=== PATIENT | female | born 1990 | race Caucasian/White ===

== ENCOUNTER 2020-01-14 13:20 | Inpatient (IN) ==
[2020-01-14] MEDS ORDERED: TUBERSOL ID ONE (15:34)
[2020-01-14] MEDS ORDERED: NICOTINE GUM BUCCAL PRN (15:34)
[2020-01-14] MEDS ORDERED: ZOFRAN IM PRN (15:34)
[2020-01-14] MEDS ORDERED: PHENOBARBITAL IV PRN (15:34)
[2020-01-14] MEDS ORDERED: DULCOLAX PR PRN (15:34)
[2020-01-14] MEDS ORDERED: NICODERM PATCH TD PRN (15:34)
[2020-01-14] MEDS ORDERED: TYLENOL PO PRN (15:34)
[2020-01-14] MEDS ORDERED: IMODIUM PO PRN ×2 (15:34)
[2020-01-14] MEDS ORDERED: ZOFRAN IV PRN (15:34)
[2020-01-14] MEDS ORDERED: D5W 1,000 ML IV PRN (15:34)
[2020-01-14] MEDS ORDERED: DESYREL PO PRN (15:34)
[2020-01-14] MEDS ORDERED: SENOKOT PO PRN (15:34)
[2020-01-14] MEDS ORDERED: MAALOX PLUS LIQUID PO PRN (15:34)
[2020-01-14 16:08] LABS: HEMATOCRIT 32.2 % (37.0-47.0); HEMOGLOBIN 10.4 g/dL (12.0-16.0); MCH 27.7 PG (27-31); MCHC 32.3 g/dL (33-37); MCV 85.6 FL (81-99); MPV 9.7 FL (7.4-10.4); RBC 3.76 XMIL (4.2-5.4); RDW 12.3 % (11.5-14.5); WBC 6.73 X1000 (4.8-10.8)
[2020-01-14 16:23] LABS: INR 0.94
[2020-01-14 16:24] LABS: AGAP 11; ALBUMIN 3.8 g/dL (3.5-5.0); ALKALINE PHOSPHATASE 64 U/L (32-104); AMYLASE 54 U/L (20-200); BUN 8 mg/dL (8-22); CHLORIDE 104 mmol/L (98-107); COSMO 276; CREATININE 0.6 mg/dL (0.5-0.9); ESTIMATED GFR > 60; GLUCOSE 70 mg/dL (70-104); GOT 13 U/L (10-30); GPT 12 U/L (10-36); LIPASE 17 U/L (13-60); SODIUM 140 mmol/L (136-145); TCO2 25 mmol/L (25-35); TOTAL PROTEIN 6.4 g/dL (6.3-8.3)
[2020-01-14 17:25] LABS: URINE SOURCE VOIDED
[2020-01-14 17:28] LABS: BILIRUBIN URINE NEGATIVE (NEGATIVE); BLOOD URINE NEGATIVE (NEGATIVE); COLOR YELLOW; GLUCOSE URINE NEGATIVE (NEGATIVE); KETONE URINE NEGATIVE (NEGATIVE); LEUKOCYTES URINE LARGE (NEGATIVE); NITRITE URINE NEGATIVE (NEGATIVE); PROTEIN URINE TRACE mg/dL (NEGATIVE); SP GRAVITY URINE 1.022; TURBIDITY URINE HAZY (CLEAR); UR EPITHELIAL CELLS >10 /HPF (<10); URINE BACTERIA 2+ /HPF; URINE RBC <10 /HPF (<10); URINE WBC TNTC /HPF (<10); UROBILINOGEN URINE NORMAL (NORMAL)
[2020-01-14] MEDS ORDERED: ATARAX PO PRN (17:39)
[2020-01-14] MEDS ORDERED: BENTYL PO PRN (17:39)
[2020-01-14] MEDS ORDERED: LIBRIUM PO PRN (17:39)
[2020-01-14 17:41] LABS: UR AMPHETAMINES QUAL NONE DETECTED (NONE DETECT); UR BARBITUATES QUAL NONE DETECTED (NONE DETECT); UR BENZODIAZEPIN QUAL NONE DETECTED (NONE DETECT); UR CANNABINOIDS QUAL NONE DETECTED (NONE DETECT); UR COCAINE QUAL NONE DETECTED (NONE DETECT); UR METHADONE QUAL NONE DETECTED (NONE DETECT); UR METHAMPHETAMINE QUAL NONE DETECTED (NONE DETECT); UR OPIATES QUAL NONE DETECTED (NONE DETECT); UR OXYCODONE QUAL NONE DETECTED (NONE DETECT); UR PCP QUAL NONE DETECTED (NONE DETECT); UR PROPOXYPHENE QUAL NONE DETECTED (NONE DETECT); UR TCA QUAL NONE DETECTED (NONE DETECT)
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
[2020-01-14] MEDS: SUBOXONE 2 MG/0.5 MG FILM SL SCH (21:36)
[2020-01-14] MEDS: MOTRIN PO PRN (21:36)
[2020-01-14] MEDS: SINEMET 25/100 PO PRN (21:36)
[2020-01-14] MEDS: ZOFRAN ODT PO PRN (21:36)
[2020-01-14] MEDS: ROBAXIN PO PRN (21:36)
[2020-01-14] MEDS: SEROQUEL PO PRN (21:36)
[2020-01-15] MEDS: PROTONIX PO SCH (07:09)
[2020-01-15] MEDS: THERA M PLUS PO SCH (10:04)
[2020-01-15] MEDS: VITAMIN B-1 PO SCH (10:04)
[2020-01-15] MEDS: FOLIC ACID PO SCH (10:04)
[2020-01-15] MEDS: SUBOXONE 2 MG/0.5 MG FILM SL SCH ×2 (10:04→20:54)
[2020-01-15] MEDS: SEROQUEL PO PRN (23:03)
[2020-01-15] MEDS: ZOFRAN ODT PO PRN (23:03)
[2020-01-15] MEDS: ROBAXIN PO PRN (23:03)
[2020-01-15] MEDS: SINEMET 25/100 PO PRN (23:03)
[2020-01-15] MEDS: MOTRIN PO PRN (23:03)
--- NOTE | 2020-01-16 01:10 | PROGRESS NOTE ---
DATE: 01/15/2020 SUBJECTIVE: Patient notes that she is feeling a little bit better. Denies any fevers or chills. Notes that Suboxone is helping but typically has been taking at least two 8 mg strips at home. PHYSICAL EXAMINATION: Vital Signs: Reviewed. General: She is awake, alert. She is in no current respiratory distress. HEENT: Normocephalic. Neck: Supple. Cardiovascular: Regular rate. Chest: Clear. Abdomen: Soft. Extremities: Moves all extremities. ASSESSMENT: 1. Nausea and vomiting. 2. Abdominal pain. 3. Myalgias. 4. Paresthesias. 5. Paroxysmal sweating. 6. Polysubstance use and abuse. 7. Opiate use and abuse. PLAN: We are going to continue patient in the hospital. Increase Suboxone to 8/2. If she tolerates hopefully can discharge home tomorrow. cc: Pascual Shannon MD
[2020-01-16] MEDS: PROTONIX PO SCH (06:19)
[2020-01-16 08:42] VITALS: BP 134/60
[2020-01-16] MEDS: FOLIC ACID PO SCH (09:07)
[2020-01-16] MEDS: THERA M PLUS PO SCH (09:07)
[2020-01-16] MEDS: SUBOXONE 2 MG/0.5 MG FILM SL SCH (09:07)
[2020-01-16] MEDS: VITAMIN B-1 PO SCH (09:07)
--- NOTE | 2020-01-16 11:09 | Diag Imaging Result Doc PS360 ---
EXAM: HAND COMPLETE RIGHT - 01/16/2020 HISTORY: fracture, pain TECHNIQUE: Right hand three views COMPARISON: 12/31/2019 FINDINGS: There is a fracture of the distal shaft of the fifth metacarpal again seen. This appears have undergone mild interval healing but is not yet healed. There is some residual ventral angulation of the distal fragment. There is no other recent fracture or dislocation identified. There is possible old fracture deformity at the base of the distal phalanx of the fifth finger which appears stable. There are no erosive or destructive changes identified. IMPRESSION: Incompletely healed fracture of distal shaft of fifth metacarpal, with some residual ventral angulation of the distal fragment. Electronically signed by Trevor Meyer 01/16/2020 11:06 AM
--- NOTE | 2020-01-16 20:42 | DISCHARGE SUMMARY ---
ADMISSION DATE: 01/14/2020 DISCHARGE DATE: 01/16/2020 DISCHARGE DIAGNOSES: 1. Nausea and vomiting. 2. Abdominal pain. 3. Myalgias. 4. Paresthesias. 5. Right hand pain from previous fracture. 6. Opiate abuse withdrawal and stabilization. CONSULTATIONS: None. PROCEDURES: None. BRIEF HOSPITAL COURSE: The patient is a 29-year-old female who presented to [facility] secondary to nausea, vomiting, abdominal pain. She notes that she has been using and abusing opiates. She has been buying Suboxone off the street. She was admitted, placed on Suboxone, continued counseling, continued to follow. On discharge, she is awake, alert, and oriented. DISPOSITION: The patient will be discharged home. DISCHARGE PHYSICAL EXAMINATION: She is awake, alert, and oriented. She is in no current respiratory distress. HEENT: Normocephalic. Neck supple. CV: Regular rate. DISCHARGE INSTRUCTIONS: The patient will be discharged home. She is instructed to follow up with outpatient treatment facility of choice. Discussed with her that she needs to avoid all persons, places, and situations in which she has been using and abusing in the past. She needs outpatient life counseling, as well as drug counseling. TIME SPENT: Greater than 30 minutes. cc: Pascual Shannon MD
== END 2020-01-16 10:29 | disposition home or self-care (01) | DRG 897 ==
LOC: P.DIRADM 14:06 → P.MEDSURG 14:30
PROVIDERS: ADMIT Family Medicine; ATTEND Family Medicine